=== PATIENT | male | born 2000 | race American Indian/Alaskan Native ===

== ENCOUNTER 2021-09-22 00:35 | Emergency (ER) | payer SELFPAY ==
[2021-09-22 00:43] VITALS: BP 124/77
[2021-09-22 01:37] LABS: Basophils % (Auto) 0.8 % (0.0-1.8); Eosinophils # (Auto) 0.1 K/mm3 (0.0-0.4); Eosinophils % (Auto) 1.1 % (0.0-4.3); Hematocrit 41.8 % (35.5-45.6); Hemoglobin 13.3 gm/dl (11.8-15.2); Lymphocytes # (Auto) 2.6 K/mm3 (1.2-5.4); Mean Corpuscular HGB Conc 32 % (32-34); Mean Corpuscular Volume 89 fl (84-94); Monocytes # (Auto) 0.6 K/mm3 (0.0-0.8); Monocytes % (Auto) 11.5 % (0.0-7.3); Platelet Count 258 K/mm3 (140-440); Red Blood Count 4.72 M/mm3 (3.65-5.03); Red Cell Distribution Width 13.8 % (13.2-15.2)
[2021-09-22 01:52] LABS: Alanine Aminotransferase 26 units/L (7-56); Albumin 4.8 g/dL (3.9-5); BUN/Creatinine Ratio 8; Blood Urea Nitrogen 7 mg/dL (9-20); Calcium 9.9 mg/dL (8.4-10.2); Hemolysis Index 10
--- NOTE | 2021-09-22 02:09 | XRay Report ---
CHEST PA AND LATERAL VIEWS INDICATION: chest tightness. COMPARISON: None. FINDINGS: Support devices: None. Heart: Within normal limits. Lungs/Pleura: No acute pulmonary or pleural findings. IMPRESSION: 1. No acute findings. Signer Name: Lowell Mensah MD Signed: 09/22/2021 2:04 AM Workstation Name: [id number]
--- NOTE | 2021-09-22 02:17 | Emergency Department Report ---
ED General Adult HPI - General Chief complaint: Chest Pain Stated complaint: CHEST TIGHTNESS Source: patient Mode of arrival: Ambulatory Limitations: No Limitations - History of Present Illness Initial comments: Patient is a 21-year-old -Beninese male with a history of asthma presents to the ED with complaint of acute onset persistent intermittent chest tightness for the last 1 week. Patient states that the symptoms are worse when he lays down to sleep. Patient denies dizziness, syncope, fever, chills, cough, wheezing, chest pain, shortness of breath, headache, change in vision, sore throat, nasal and sinus congestion or abdominal pain. MD Complaint: chest tightness -: Sudden, week(s) (1) Location: chest Radiation: non-radiation Severity scale (0 -10): 3 Quality: dull Consistency: intermittent Improves with: none Worsens with: movement Associated Symptoms: denies other symptoms, chest pain (Substernal chest wall tightness). denies: cough, diaphoresis, fever/chills, headaches, loss of appetite, malaise, nausea/vomiting, rash, shortness of breath, syncope, weakness, other Treatments Prior to Arrival: none - Related Data Previous Rx's Medication Instructions Recorded Last Taken Type Albuterol Sulfate [Proventil Hfa] 1 - 2 puff IH Q6H PRN #1 hfa.aer.ad 09/22/21 Unknown Rx predniSONE [Deltasone] 40 mg PO QDAY #10 tab 09/22/21 Unknown Rx Allergies Allergy/AdvReac Type Severity Reaction Status Date / Time No Known Allergies Allergy Unverified 09/22/21 00:43 ED Review of Systems ROS: Stated complaint: CHEST TIGHTNESS Other details as noted in HPI Constitutional: denies: chills, fever Eyes: denies: eye pain, eye discharge, vision change ENT: denies: ear pain, throat pain Respiratory: denies: cough, shortness of breath, wheezing Cardiovascular: chest pain (Chest tightness). denies: palpitations Endocrine: no symptoms reported Gastrointestinal: denies: abdominal pain, nausea, vomiting, diarrhea Genitourinary: denies: urgency, dysuria Musculoskeletal: denies: back pain, joint swelling, arthralgia Skin: denies: rash, lesions Neurological: denies: headache, weakness, paresthesias Psychiatric: denies: anxiety, depression Hematological/Lymphatic: denies: easy bleeding, easy bruising ED Past Medical Hx - Past Medical History Hx Asthma: Yes - Surgical History Past Surgical History?: No - Social History Smoking Status: Current Every Day Smoker Substance Use Type: Marijuana - Medications Home Medications: Home Medications Medication Instructions Recorded Confirmed Last Taken Type Albuterol Sulfate [Proventil Hfa] 1 - 2 puff IH Q6H PRN #1 hfa.aer.ad 09/22/21 Unknown Rx predniSONE [Deltasone] 40 mg PO QDAY #10 tab 09/22/21 Unknown Rx ED Physical Exam - General Limitations: No Limitations General appearance: alert, in no apparent distress - Head Head exam: Present: atraumatic, normocephalic, normal inspection - Eye Eye exam: Present: normal appearance, PERRL, EOMI Pupils: Present: normal accommodation - ENT ENT exam: Present: normal exam, normal orophraynx, mucous membranes moist, TM's normal bilaterally, normal external ear exam - Neck Neck exam: Present: normal inspection, full ROM - Respiratory Respiratory exam: Present: normal lung sounds bilaterally. Absent: respiratory distress, wheezes, rales, rhonchi, chest wall tenderness, accessory muscle use, decreased breath sounds - Cardiovascular Cardiovascular Exam: Present: regular rate, normal rhythm, normal heart sounds. Absent: systolic murmur, diastolic murmur, rubs, gallop - GI/Abdominal GI/Abdominal exam: Present: soft, normal bowel sounds. Absent: tenderness, guarding, rebound, hypoactive bowel sounds, mass, bruit - Extremities Exam Extremities exam: Present: normal inspection, full ROM, normal capillary refill - Back Exam Back exam: Present: normal inspection, full ROM. Absent: tenderness, CVA tenderness (R), CVA tenderness (L), muscle spasm - Neurological Exam Neurological exam: Present: alert, oriented X3, CN II-XII intact, normal gait, reflexes normal - Psychiatric Psychiatric exam: Present: normal affect, normal mood - Skin Skin exam: Present: warm, dry, intact, normal color. Absent: rash ED Course Vital Signs 09/22/21 00:39 Pulse Rate 63 Respiratory 18 Rate Blood Pressure 124/77 O2 Sat by Pulse 100 Oximetry ED Medical Decision Making - Lab Data Result diagrams: 09/22/21 01:04 09/22/21 01:04 - Radiology Data Radiology results: report reviewed, image reviewed [facility] [address] [place] [address] XRay Report Signed Patient: ANGEL DIAS MR#: [id number] : 2000 Acct:[id number] Age/Sex: 21 / M ADM Date: 09/22/21 Loc: ED Attending Dr: Ordering Physician: ROXY MCCAULEY Date of Service: 09/22/21 Procedure(s): XR chest routine 2V Accession Number(s): [id number] cc: ROXY MCCAULEY Fluoro Time In Minutes: CHEST PA AND LATERAL VIEWS INDICATION: chest tightness. COMPARISON: None. FINDINGS: Support devices: None. Heart: Within normal limits. Lungs/Pleura: No acute pulmonary or pleural findings. IMPRESSION: 1. No acute findings. Signer Name: Lowell Mensah MD Signed: 09/22/2021 2:04 AM Workstation Name: [id number] Transcribed By: BARBARA Dictated By: Lowell Mensah MD Electronically Authenticated By: Lowell Mensah MD Signed Date/Time: 09/22/21203 DD/ 3 TD/TT: - Medical Decision Making This is a 21-year-old -[place] male with a history of asthma presents to the ED with complaint of acute onset persistent intermittent chest tightness for the last 1 week. Patient states that the symptoms are worse when he lays down to sleep. In the ED, patient is alert and oriented x3 and is not in any distress. Chest x-ray shows no acute cardiopulmonary abnormalities or pneumonitis. Lab test results were reviewed and are all nonactionable. Patient was discharged home on medications and advised to follow-up with his primary care physician in 5 to 7 days for reevaluation or return to the ED immediately if symptoms get worse. - Differential Diagnosis Asthma; pneumonia; ACS; URI; GERD; bronchitis Critical care attestation.: If time is entered above; I have spent that time in minutes in the direct care of this critically ill patient, excluding procedure time. ED Disposition Clinical Impression: Sensation of chest tightness Chronic asthma without complication Qualifiers: Asthma severity: mild Asthma persistence: intermittent Qualified Code(s): J45.20 - Mild intermittent asthma, uncomplicated Disposition: HOME / SELF CARE / HOMELESS Is pt being admited?: No Does the pt Need Aspirin: No Condition: Stable Instructions: Chest Wall Pain, [id number], Nonspecific Chest Pain, Adult, [id number], Asthma (ED) Additional Instructions: All lab test results were reviewed and are all nonactionable. Chest x-ray showed no acute cardiopulmonary abnormalities or pneumonitis. Your symptoms are likely due to asthma or bronchitis. Therefore take medication as advised, drink plenty of fluids and follow-up with your primary care physician in 7 to 10 days for reevaluation. Return to the ED immediately if symptoms get worse. Prescriptions: predniSONE [Deltasone] 40 mg PO QDAY #10 tab Albuterol Sulfate [Proventil Hfa] 1 - 2 puff IH Q6H PRN #1 hfa.aer.ad PRN Reason: Dyspnea Referrals: [facility] [Outside] - 3-5 Days Time of Disposition: 02:19 Print Language: MALTESE
--- NOTE | 2021-09-24 18:56 | Electrocardiograph Report ---
[facility] Test Date: 2021-09-22 Test Time: 01:03:38 Pat Name: ANGEL DIAS Department: Room: Gender: M Yacht Hand: [id number] : 2000 Requested By: NASIR KUHN Order Number: [id number] Reading MD: Edy Canales Measurements Intervals Lutz Rate: 61 P: 75 MS: 164 QRS: 72 QRSD: 77 T: 62 QT: 386 QTc: 389 Interpretive Statements Sinus rhythm Diffuse ST abnormality, consider early repolarization versus pericarditis No previous ECG available for comparison Electronically Signed On 09-24-2021 18:55:32 EDT by Edy Canales
== END 2021-09-22 04:05 | disposition home or self-care (01) ==
LOC: ED 00:35
DX: J45.998 Other asthma (principal); F17.200 Nicotine dependence, unspecified, uncomplicated; F12.90 Cannabis use, unspecified, uncomplicated; Z79.899 Other long term (current) drug therapy
CPT/HCPCS: 36415; 71046; 80053; 84484; 85025; 93005; 99283